=== PATIENT | female | born 1985 | race Caucasian/White ===

== ENCOUNTER → 2017-12-29 | Outpatient (CLI) | payer BC | LOC: LABNPT 17:51 | PROVIDERS: ATTEND Nurse Practitioner Family | DX: N30.00 Acute cystitis without hematuria (principal) | CPT/HCPCS: 87088 ==

== ENCOUNTER → 2018-04-05 | Outpatient (CLI) | payer BC | LOC: LABNPT 19:46 | PROVIDERS: ATTEND Nurse Practitioner Family | DX: N30.00 Acute cystitis without hematuria (principal) | CPT/HCPCS: 87088 ==

== ENCOUNTER 2021-06-06 22:14 | Emergency (ER) | payer BC ==
[~2021-06-06] VITALS: Ht 160 cm; Wt 79.3 kg
[2021-06-06 22:54] LABS: BACTERIA,URINE FEW /HPF; BILIRUBIN,URINE NEGATIVE (NEGATIVE); CLARITY,URINE SL CLOUDY; COLOR,URINE RED; GLUCOSE, URINE (UA) NEGATIVE (NEGATIVE); KETONES,URINE NEGATIVE (NEGATIVE); LEUKOCYTE ESTERASE ,URINE 3+ (NEGATIVE); NITRITE,URINE NEGATIVE (NEGATIVE); PH,URINE 6.5 (5-9); PROTEIN,URINE 2+ (NEGATIVE); RBC,URINE TNTC /HPF
[2021-06-06 23:30] VITALS: BP 133/86
--- NOTE | 2021-06-07 00:05 | ED GU-Female ---
General Chief Complaint: - Reproductive Stated Complaint: PELVIC PAIN/PAINFUL URINATION Nursing Triage Note: urinary pain started today, frequent urination, pain post vopid, tonight urinating blood. Source: patient Exam Limitations: no limitations (ROSA M SHANE STUDENT) History of Present Illness Date Seen by Provider: Jun 06, 2021 Time Seen by Provider: 23:45 Initial Comments This is Kanika who presents to the ED with c/o hematuria. Pt states that earlier today she started having urinary frequency. A few hours later, she then developed severe pain after urination in the suprapubic area and lower back. After dinner, she started having hematuria. Pt tried using Azo and D-mannose, without any improvement in symptoms. Pt states that she is no longer able to hold her bladder, stated that she wet her pants in the waiting room. Pt is currently standing in exam room, due to increase in pain sitting down. Pt is positive for burning with urination, frequency and hematuria. Pt denies any trauma to the urethra or bladder. Pt denies history of kidney stones. Timing/Duration: this afternoon, this evening, getting worse Severity/Quality: severe, burning Location: suprapubic, generalized flank (lumbar region soreness ) Radiation: none Activities at Onset: none Prior Genitourinary Problems: none Sexual [place] History: single partner Modifying Factors: Worsens With Lying down, Worsens With Urinating, Worsens With Other (Azo) Associated Symptoms: No diaphoresis; dysuria; No fever/chills; loss of bladder control (cannot hold urine in, feels need to urinate), lower back pain; No nausea/vomiting (ROSA M SHANE MED STUDENT) Allergies and Home Medications Allergies Coded Allergies: Penicillins (Verified Allergy, Unknown, 06/06/21) Sulfamethoxazole-Trimethoprim (Verified Allergy, Unknown, 06/07/21) cefaclor (Verified Allergy, Unknown, 06/06/21) erythromycin base (Verified Allergy, Unknown, 06/06/21) Patient Home Medication List Hyoscyamine Sulfate (Levsin-Sl) 0.125 Mg Tab.subl, 1-2 TAB SL Q4H PRN for SPASMS Prescribed by: VINAY JOHNSON on 06/07/21 0023 Nitrofurantoin Monohyd/M-Cryst (Macrobid 100 mg Capsule) 100 Mg Capsule, 1 TAB PO BID Prescribed by: VINAY JOHNSON on 06/07/21 0023 Review of Systems Review of Systems Constitutional: No chills, No diaphoresis, No fever EENTM: No blurred vision, No double vision Respiratory: No cough, No short of breath Cardiovascular: No chest pain, No palpitations Gastrointestinal: No abdominal pain, No constipation, No diarrhea, No nausea, No vomiting Genitourinary: burning; denies discharge; dysuria, frequency, hematuria, in continence, other (pain after urination ) LMP: May 28, 2021 Musculoskeletal: back pain Skin: no symptoms reported (ROSA M SHANE STUDENT) Past Axuwllp-Ppxwry-Puutmf Hx Patient Social History Tobacco Use?: No Use of E-Cig and/or Vaping dev: No Substance use?: No Alcohol Use?: Yes Alcohol Frequency: Once in a while Pt feels they are or have been: No (ROSA M SHANE) Immunizations Up To Date Influenza Vaccine Up-to-Date: Yes; Up-to-Date First/Initial COVID19 Vaccinat: oct 2020 Second COVID19 Vaccination Mina: december 2020 COVID19 Vaccine Program Professional: moderna (ROSA M SHANE) Past Medical History Surgeries: No Respiratory: No Cardiac: No Last Menstrual Period: May 25, 2021 Reproductive Disorders: No Gastrointestinal: No (ROSA M SHANE) Physical Exam Vital Signs Vital Signs - First Documented 06/06/21 23:30 Temp 36.5 Pulse 69 Resp 18 B/P (MAP) 139/85 (103) Pulse Ox 100 (VINAY BOATENG MD) Vital Signs Capillary Refill : Less Than 3 Seconds (ROSA M SHANE STUDENT) Height, Weight, BMI Height: '" Weight: lbs. oz. kg; 30.00 BMI Method: General Appearance: WD/WN, moderate distress Neck: full range of motion, supple Cardiovascular: regular rate, rhythm, no murmur Respiratory: chest non-tender, lungs clear, normal breath sounds Gastrointestinal: normal bowel sounds, non tender, soft, other (no suprapubic tenderness with palpation ) Back: no CVA tenderness; No CVA tenderness (R), No CVA tenderness (L) Neurologic/Psychiatric: alert, normal mood/affect, oriented x 3 Skin: normal color, warm/dry (ROSA M SHANE STUDENT) Progress/Results/Core Measures Suspected Sepsis SIRS Temperature: Pulse: 69 Respiratory Rate: 18 Blood Pressure 139 /85 Mean: 103 (ROSA M SHANE STUDENT) Results/Orders Lab Results Laboratory Tests Test 06/06/21 22:36 Range/Units Urine Color RED H Urine Clarity SL CLOUDY Urine pH 6.5 5-9 Urine Specific Raphine 1.010 L 1.016-1.022 Urine Protein 2+ H NEGATIVE Urine Glucose (UA) NEGATIVE NEGATIVE Urine Ketones NEGATIVE NEGATIVE Urine Nitrite NEGATIVE NEGATIVE Urine Bilirubin NEGATIVE NEGATIVE Urine Urobilinogen 0.2 < = 1.0 MG/DL Urine Leukocyte Esterase 3+ H NEGATIVE Urine RBC (Auto) 3+ H NEGATIVE Urine RBC TNTC H /HPF Urine WBC 10-25 H /HPF Urine Crystals NONE /LPF Urine Bacteria FEW H /HPF Urine Casts NONE /LPF Urine Mucus NEGATIVE /LPF Urine Culture Indicated YES (VINAY BOATENG MD) My Orders Orders - VINAY BOATENG MD Ua Culture If Indicated (06/06/21 22:27) Urine Culture (06/06/21 22:36) Rx-Hyoscyamine Tab (Rx-Levsin Sl) (06/07/21 00:15) Rx-Nitrofurantoin [place] (Rx-Macrobid) (06/07/21 00:15) (VINAY BOATENG MD) Vital Signs/I&O 06/06/21 23:30 Temp 36.5 Pulse 69 Resp 18 B/P (MAP) 139/85 (103) Pulse Ox 100 (VINAY BOATENG MD) Vital Signs/I&O Capillary Refill : Less Than 3 Seconds (ROSA M SHANE MED STUDENT) Blood Pressure Mean: 103 Progress Note : Time: 23:55 Progress Note This is Kanika, who is here for hematuria. Urine sample was taken to undergo urinalysis. UA revealed 3+ leukocyte esterase and few bacteria, with numerous RBC. Pt denies any history of kidney stones, denies sudden onset of symptoms, denies pain radiation into the groin. Flank pain was described as a soreness in the lumbar region. Patient voiced concern of having to go to work in the morning without any medication on board. Pt will receive take-home bottles of both prescriptions after initial ED doses. (ROSA M SHANE MED STUDENT) Departure Impression Primary Impression: Urinary tract infection Qualified Codes: N39.0 - Urinary tract infection, site not specified; R31.9 - Hematuria, unspecified Additional Impression: Bladder spasms Disposition: 01 HOME, SELF-CARE Condition: Stable Departure-Patient Inst. Decision time for Depature: 00:20 (VINAY BOATENG MD) Referrals: ANGELI BEAR DO (PCP/Family) Primary Care Physician Patient Instructions: Urinary Tract Infection, Adult (DC) Add. Discharge Instructions: Start your Macrobid (nitrofurantoin) antibiotic now. You may take your second dose midmorning and then start a regular twice daily schedule after that. You may use Levsin (hyoscyamine) 1 to 2 tablets dissolved under the tongue every 4 hours as needed for bladder cramping. Follow-up with your primary care provider in a few weeks after you complete treatment for the bladder infection. You should have your urine tested again to ensure the blood has cleared after treatment of the infection. Drink plenty of clear liquids to stay well-hydrated and urinate frequently. Contact your primary care provider on or Sunday to review urine culture results if you have not heard results yet from the ER. Call with questions or concerns. Return to care if you have worsening symptoms or develop new symptoms such as fever. All discharge instructions reviewed with patient and/or family. Voiced understanding. Scripts Nitrofurantoin Monohyd/M-Cryst (Macrobid 100 mg Capsule) 100 Mg Capsule 1 TAB PO BID, #10 CAP Prov: VINAY BOATENG MD 06/07/21 Hyoscyamine Sulfate (Levsin-Sl) 0.125 Mg Tab.subl 1-2 TAB SL Q4H PRN for SPASMS, #10 TAB 0 Refills Prov: VINAY BOATENG MD 06/07/21 ROSA M SHANE MED STUDENT Jun 07, 2021 00:05 VINAY BOATENG MD Jun 07, 2021 00:23
[2021-06-07] MEDS ORDERED: RX-HYOSCYAMINE 0.125 MG SL (LEVSIN) PPK#6 SL STA (00:15)
[2021-06-07] MEDS ORDERED: RX-NITROFURANTOIN 100 MG (MACROBID) CAP PPK#2 PO STA (00:15)
[2021-06-07] MEDS ORDERED: NITR-65 PO (00:23)
[2021-06-07] MEDS ORDERED: HYOS0.1283 SL (00:23)
== END 2021-06-07 00:31 | disposition home or self-care (01) ==
LOC: EDUNIT# 22:14 → ER 22:15
DX: N39.0 Urinary tract infection, site not specified (principal); N32.89 Other specified disorders of bladder; Z88.0 Allergy status to penicillin; Z88.2 Allergy status to sulfonamides; Z88.1 Allergy status to other antibiotic agents
CPT/HCPCS: 81000; 87088; 99283

== ENCOUNTER → 2023-08-06 | Outpatient (CLI) | payer BC ==
[~2023-08-06] MED LIST: HYOS0.1283 SL; NITR-65 PO
--- NOTE | 2023-08-06 16:00 | Diagnostic Imaging Report ---
PROCEDURE: Pelvic comp/transvaginal sonogram. TECHNIQUE: Complete transabdominal and transvaginal pelvic ultrasound was performed. In addition, limited pelvic Doppler was performed. INDICATION: Abnormal uterine bleeding. COMPARISON: Correlation is made with the prior exam from 06/14/2023. FINDINGS: The uterus is anteverted measuring 8.9 x 4.5 x 6.0 cm. The endometrium is 12 mm in thickness. The area of hypoechogenicity in the posterior uterus appears similar to the prior exam measuring 2.2 x 0.9 x 2.6 cm. The right ovary measures 3.5 x 1.7 x 3.3 cm and the left ovary measures 3.7 x 2.6 x 3.3 cm. Both ovaries contain small follicles. There is blood flow to both ovaries. No adnexal mass or free fluid is detected. IMPRESSION: Overall stable transabdominal and transvaginal pelvic ultrasound with limited pelvic Doppler when compared with the exam from 06/14/2023. Dictated by: Dictated on workstation # [id number]
== END ==
LOC: RAD 13:00
PROVIDERS: ATTEND Obstetrics & Gynecology
DX: N93.9 Abnormal uterine and vaginal bleeding, unspecified (principal)
CPT/HCPCS: 76830; 76856